=== PATIENT | female | born 1965 | race American Indian/Alaskan Native ===

== ENCOUNTER 2017-01-01 13:31 | Emergency (ER) | payer OTHER ==
[2017-01-01 14:24] LABS: Basophils % (Auto) 0.8 % (0.0-1.8); Eosinophils % (Auto) 2.7 % (0.0-4.3); Hematocrit 33.6 % (30.3-42.9); Mean Corpuscular HGB Conc 33 % (30-34); Mean Corpuscular Hemoglobin 27 pg (28-32); Mean Corpuscular Volume 82 fl (79-97); Platelet Count 272 K/mm3 (140-440); Red Blood Count 4.11 M/mm3 (3.65-5.03); Red Cell Distribution Width 15.8 % (13.2-15.2); White Blood Count 7.2 K/mm3 (4.5-11.0)
[2017-01-01 14:42] LABS: Anion Gap 17 mmol/L; Blood Urea Nitrogen 20 mg/dL (7-17); Calcium 9.1 mg/dL (8.4-10.2); Carbon Dioxide 24 mmol/L (22-30); Chloride 107.1 mmol/L (98-107); Glucose 59 mg/dL (65-100); Potassium 3.5 mmol/L (3.6-5.0); Sodium 145 mmol/L (137-145)
[2017-01-01 21:25] VITALS: BP 180/95
[2017-01-01] MEDS ORDERED: NORCO 5/325 PO ONE (22:30)
[2017-01-01] MEDS ORDERED: ZOFRAN ODT PO ONE (22:31)
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
== END 2017-01-01 23:14 | disposition home or self-care (01) ==
LOC: ED 13:31
DX: S39.012A Strain of muscle, fascia and tendon of lower back, initial encounter (principal); R07.89 Other chest pain; I10 Essential (primary) hypertension; E11.9 Type 2 diabetes mellitus without complications; V79.59XA Passenger on bus injured in collision with other motor vehicles in traffic accident, initial encounter; Y92.488 Other paved roadways as the place of occurrence of the external cause; Y93.89 Activity, other specified; Y99.9 Unspecified external cause status
CPT/HCPCS: 36415; 71020; 80048; 84484; 85025; 93005; 93010; Q0162